=== PATIENT | male | born 1980 | race American Indian/Alaskan Native ===

== ENCOUNTER 2018-09-11 14:19 | Emergency (ER) | payer SELFPAY ==
--- NOTE | 2018-09-11 14:54 | Emergency Department Report ---
Blank Doc - Documentation Documentation: this is a 38-year-old male that presents with right hand pain and tingling sen sation. HX of gout. Denies any injuries. This initial assessment/diagnostic orders/clinical plan/treatment(s) is/are subject to change based on patient's health status, clinical progression and re- assessment by fellow clinical providers in the ED. Further treatment and workup at subsequent clinical providers discretion. Patient/guardians urged not to elope from the ED as their condition may be serious if not clinically assessed and managed. Initial orders include: 1- Patient sent to [facility] for further evaluation and treatment
[2018-09-11 14:55] VITALS: BP 151/95
[2018-09-11] MEDS ORDERED: DECADRON IM ONE (15:50)
[2018-09-11] MEDS ORDERED: COLCHICINE PO ONE ×2 (15:50)
--- NOTE | 2018-09-11 16:14 | Emergency Department Report ---
ED Extremity Problem HPI - General Chief complaint: Extremity Injury, Upper Stated complaint: R HAND PAIN Time Seen by Provider: 09/11/18 14:53 Source: patient Mode of arrival: Ambulatory Limitations: No Limitations - History of Present Illness Initial comments: Patient is a 38-year-old male who has a past medical history of gout who is complaining of pain in his right hand and wrist swelling to the mid hand in the third and fourth digit. Patient states has been no injury or trauma to the hand. Patient states he had gout attack in the past that did involve the fingers well. Patient denies fevers chills cough cold congestion and nausea vomiting. Severity scale (0 -10): 7 Quality: aching Consistency: constant - Related Data Previous Rx's Medication Instructions Recorded Last Taken Type HYDROcodone/APAP 5-325 [Orla 1 each PO Q6HR PRN #14 tablet 09/11/18 Unknown Rx 5/325] Ibuprofen [Motrin 600 MG tab] 600 mg PO Q8H PRN #20 tablet 09/11/18 Unknown Rx predniSONE [Deltasone] 20 mg PO QDAY #5 tab 09/11/18 Unknown Rx Allergies Allergy/AdvReac Type Severity Reaction Status Date / Time No Known Allergies Allergy Unverified 09/11/18 14:22 ED Review of Systems ROS: Stated complaint: R HAND PAIN Other details as noted in HPI Comment: All other systems reviewed and negative ED Past Medical Hx - Past Medical History Hx Heart Attack/AMI: No Additional medical history: Gout - Surgical History Past Surgical History?: Yes Additional Surgical History: Right finger - Social History Smoking Status: Current Every Day Smoker Substance Use Type: None - Medications Home Medications: Home Medications Medication Instructions Recorded Confirmed Last Taken Type HYDROcodone/APAP 5-325 [Orla 1 each PO Q6HR PRN #14 tablet 09/11/18 Unknown Rx 5/325] Ibuprofen [Motrin 600 MG tab] 600 mg PO Q8H PRN #20 tablet 09/11/18 Unknown Rx predniSONE [Deltasone] 20 mg PO QDAY #5 tab 09/11/18 Unknown Rx ED Physical Exam - General Limitations: No Limitations General appearance: alert, in no apparent distress - Head Head exam: Present: atraumatic, normocephalic - Eye Eye exam: Present: normal appearance - ENT ENT exam: Present: mucous membranes moist - Neck Neck exam: Present: normal inspection - Respiratory Respiratory exam: Absent: respiratory distress - Cardiovascular Cardiovascular Exam: Present: regular rate, normal rhythm. Absent: systolic murmur, diastolic murmur, rubs, gallop - GI/Abdominal GI/Abdominal exam: Present: soft, normal bowel sounds - Rectal Rectal exam: Present: deferred - Extremities Exam Extremities exam: Present: normal inspection, tenderness, other (patient's right hand does show some generalized swelling specifically the dorsum of the hand near the wrist as well as the third and fourth digit. Patient has no pain on palpation to the flexor tendon sheath and an has the ability to fully extend both of these fingers. There is no acute puncture wounds. There are no lacerations. There is no evidence of any evidence of fluctuance or infection.) - Back Exam Back exam: Present: normal inspection - Neurological Exam Neurological exam: Present: alert, oriented X3 - Psychiatric Psychiatric exam: Present: normal affect, normal mood - Skin Skin exam: Present: warm, dry, intact, normal color. Absent: rash ED Course Vital Signs 09/11/18 14:54 Temperature 98.4 F Pulse Rate 88 Respiratory 16 Rate Blood Pressure 151/95 O2 Sat by Pulse 98 Oximetry ED Medical Decision Making - Medical Decision Making Patient given a shot of Decadron and started on colchicine patient be discharged home with pain medications. Critical care attestation.: If time is entered above; I have spent that time in minutes in the direct care of this critically ill patient, excluding procedure time. ED Disposition Clinical Impression: Acute gout Qualifiers: Gout site: hand Gout etiology: idiopathic Laterality: right Qualified Code(s): M10.041 - Idiopathic gout, right hand Disposition: - TO HOME OR SELFCARE Is pt being admited?: No Does the pt Need Aspirin: No Condition: Stable Instructions: Acute Gouty Arthritis (ED) Referrals: ABEL ZAYAS MD [Referring] - 3-5 Days Time of Disposition: 16:14
== END 2018-09-11 16:20 | disposition home or self-care (01) ==
LOC: ED 14:19
DX: M10.041 Idiopathic gout, right hand (principal); F17.200 Nicotine dependence, unspecified, uncomplicated; Z79.1 Long term (current) use of non-steroidal anti-inflammatories (NSAID); Z79.899 Other long term (current) drug therapy
CPT/HCPCS: 96372; 99282; J1100